=== PATIENT | female | born 1995 | race Caucasian/White ===

== ENCOUNTER 2016-06-20 10:26 | Emergency (ER) | payer OTHER ==
[2016-06-20 10:52] VITALS: BP 111/65; PULSE 94; TEMP 98.1; BMI 28.8
[2016-06-20] MEDS ORDERED: SODIUM CHLORIDE 1,000 ML IV STA (11:59)
[2016-06-20] MEDS ORDERED: ONDANSETRON 4 MG/2 ML VIAL IVPUSH ONE ×2 (11:59→15:24)
[2016-06-20 12:38] LABS: BASOPHIL 0.3 % (0-2.0); EOSINOPHIL 0.1 % (0-4.5); MCH 28.4 pg (25.7-33.7); MCHC 32.5 g/dl (32.0-36.0); MEAN CELL VOLUME 87.2 fl (80-96); MEAN PLT VOLUME 8.7 fl (7.5-11.1); NEUTROPHILS 92.9 % (42.8-82.8); PLATELET COUNT 234 K/MM3 (134-434); RDW 13.3 % (11.6-15.6); WHITE BLOOD COUNT 11.6 K/mm3 (4.0-10.0)
[2016-06-20 13:10] LABS: ALBUMIN 4.1 g/dl (3.4-5.0); ANION GAP 11 (8-16); BILIRUBIN,TOTAL 0.4 mg/dL (0.2-1.0); CALCIUM 8.9 mg/dL (8.5-10.1); CO2 27 mmol/L (21-32); CREATININE 0.9 mg/dL (0.55-1.02); GLUCOSE,RANDOM 103 mg/dL (74-106); SGOT/AST 15 U/L (15-37); SGPT/ALT 18 U/L (12-78); TOT PROT 7.6 g/dl (6.4-8.2)
[2016-06-20 13:11] LABS: ALK PHOS 65 U/L (45-117)
[2016-06-20 14:39] LABS: URINE APPEARANCE SLCLOUDY; URINE BILIRUBIN NEGATIVE (NEGATIVE); URINE COLOR YELLOW; URINE GLUCOSE (UA) NEGATIVE (NEGATIVE); URINE KETONE TRACE (NEGATIVE); URINE NITRITE NEGATIVE (NEGATIVE); URINE UROBILINOGEN NEGATIVE E.U./dl (0.2-1.0)
[2016-06-20 14:42] LABS: URINE BLOOD 3+ (NEGATIVE); URINE LEUK ESTERASE TRACE (NEGATIVE); URINE PROTEIN 1+ (NEGATIVE)
[2016-06-20 14:45] LABS: URINE MUCUS RARE; URINE RBC 38 /hpf (0-3); URINE WBC 14 /hpf (3-5)
[2016-06-20] MEDS ORDERED: ONDANSETRON 4 MG/2 ML VIAL ONE (15:41)
--- NOTE | 2016-06-20 17:21 | PDOC ---
[id number] is a 21-year-old female with no past medical history presenting to the ER today with nausea vomiting and diarrhea. Patient states she started vomiting after eating out last night at a restaurant. Pt. states she ate steak last night. She states that she vomited 3 times last night. She is also having episodes of diarrhea. Patient denies recent antibiotic use recently travel. Patient states that her family has been ill with similar symptoms over the past week. Denies blood in the stool she's been unable to keep liquids or food down. Denies abdominal pain. Denies fevers, chills, chest pains, palpitations, shortness of breath, dysuria, hematuria frequency. <Madhavi Bourne - Last Filed: 06/20/16 17:36> <Braydon Villarreal - Last Filed: 06/25/16 09:57> - General Chief Complaint: Vomiting/Diarrhea Stated Complaint: ABD PAIN, VOMITING Time Seen by Provider: 06/20/16 11:30 Past History - Past Medical History Other medical history: DENIES. - Psycho/Social/Smoking Cessation Hx Anxiety: No Suicidal Ideation: No Smoking Status: No Smoking History: Current every day smoker Have you smoked in the past 12 months: Yes Number of Cigarettes Smoked Daily: 2 Information on smoking cessation initiated: No Hx Alcohol Use: No <Madhavi Bourne - Last Filed: 06/20/16 17:36> <Braydon Villarreal - Last Filed: 06/25/16 09:57> - Past Medical History Allergies/Adverse Reactions: Allergies Allergy/AdvReac Type Severity Reaction Status Date / Time No Known Allergies Allergy Verified 06/20/16 10:47 Home Medications: Ambulatory Orders No Home Medications 0 dose .ROUTE UTDICT 03/12/13 *Physical Exam - Vital Signs Last Vital Signs Temp Pulse Resp BP Pulse Ox 98.1 F 94 H 19 111/65 96 06/20/16 10:47 06/20/16 10:47 06/20/16 10:47 06/20/16 10:47 06/20/16 10:47 - Physical Exam Comments: 06/20/16 17:22 GENERAL: Well developed, well nourished. Awake and alert. No acute distress. HEENT: Normocephalic, atraumatic. PERRLA, EOMI. No conjunctival pallor. Sclera are non- icteric. Moist mucous membranes. Oropharynx is clear. NECK: Supple. Full ROM. No JVD. Carotid pulses 2+ and symmetric, without bruits. No thyromegaly. No lymphadenopathy. CARDIOVASCULAR: Regular rate and rhythm. No murmurs, rubs, or gallops. Distal pulses are 2+ and symmetric. PULMONARY: No evidence of respiratory distress. Lungs clear to auscultation bilaterally. No wheezing, rales or rhonchi. ABDOMINAL: Soft. Non-tender. Non-distended. No rebound or guarding. No organomegaly. Normoactive bowel sounds. MUSCULOSKELETAL Normal range of motion at all joints. No bony deformities or tenderness. No CVA tenderness. EXTREMITIES: No cyanosis. No clubbing. No edema. No calf tenderness. SKIN: Warm and dry. Normal capillary refill. No rashes. No jaundice. NEUROLOGICAL: Alert, awake, appropriate. Cranial nerves 2-12 intact. No deficits to light touch and temperature in face, upper extremities and lower extremities. No motor deficits in the in face, upper extremities and lower extremities. Normoreflexic in the upper and lower extremities. Normal speech. Toes are down- going bilaterally. Gait is normal without ataxia. PSYCHIATRIC: Cooperative. Good eye contact. Appropriate mood and affect. <Madhavi Bourne - Last Filed: 06/20/16 17:36> - Vital Signs Last Vital Signs Temp Pulse Resp BP Pulse Ox 98.1 F 94 H 19 111/65 96 06/20/16 10:47 06/20/16 10:47 06/20/16 10:47 06/20/16 10:47 06/20/16 10:47 <Braydon Villarreal - Last Filed: 06/25/16 09:57> ED Treatment Course - LABORATORY CBC & Chemistry Diagram: 06/20/16 12:13 06/20/16 12:13 - ADDITIONAL ORDERS Additional order review: Laboratory Results 06/20/16 06/20/16 06/20/16 12:13 12:13 12:13 Sodium 142 Potassium 4.1 Chloride 104 Carbon Dioxide 27 Anion Gap 11 BUN 14 Creatinine 0.9 Creat Clearance w eGFR > 60 Random Glucose 103 Calcium 8.9 Total Bilirubin 0.4 AST 15 ALT 18 Alkaline Phosphatase 65 Total Protein 7.6 Albumin 4.1 Urine Color Yellow Urine Appearance Slcloudy Urine pH 5.0 Ur Specific [place] 1.027 Urine Protein 1+ H Urine Glucose (UA) Negative Urine Ketones Trace H Urine Blood 3+ H Urine Nitrite Negative Urine Bilirubin Negative Urine Urobilinogen Negative Ur Leukocyte Esterase Trace H Urine RBC 38 Urine WBC 14 Ur Epithelial Cells Many Urine Mucus Rare Urine HCG, Qual Negative 06/20/16 12:13 RBC 5.21 H MCV 87.2 MCHC 32.5 RDW 13.3 MPV 8.7 Neutrophils % 92.9 H Lymphocytes % 3.9 L Monocytes % 2.8 L Eosinophils % 0.1 Basophils % 0.3 <Madhavi Bourne - Last Filed: 06/20/16 17:36> - LABORATORY CBC & Chemistry Diagram: 06/20/16 12:13 06/20/16 12:13 - ADDITIONAL ORDERS Additional order review: 06/20/16 12:13 RBC 5.21 H MCV 87.2 MCHC 32.5 RDW 13.3 MPV 8.7 Neutrophils % 92.9 H Lymphocytes % 3.9 L Monocytes % 2.8 L Eosinophils % 0.1 Basophils % 0.3 <Braydon Villarreal - Last Filed: 06/25/16 09:57> Medical Decision Making - Medical Decision Making 06/20/16 12:39 Patient is 21-year-old female with no past medical history presenting with nausea vomiting and diarrhea 12 hours. Most likely a viral gastroenteritis. We' ll draw basic labs. Fluids and Zofran for symptom control. We'll reevaluate. 1. CBC, CMP for hydration status. 2. Fluids and zofran for symptomatic relief 3. Will re-evlauate 06/20/16 14:01 Patient states she vomited after Zofran. Patient tells me that she ate fruit thinking that it would help her symptoms. Advised patient that she should not eat while in the ER. She may have water or ice chips. We'll administer another dose of Zofran. Will reevaluate. 06/20/16 15:30 Patient has not vomited since second dose of Zofran. Will by mouth trial at this time. Lab work shows elevated white count. BUN/creatinine are within normal limits. Patient states she is not feeling nauseous anymore. 06/20/16 16:00 Patient was able to tolerate by mouth trial with orange juice. Patient is feeling much better at this time and ready to go home. Will discharge at this time. <Madhavi Bourne - Last Filed: 06/20/16 17:36> - Medical Decision Making 06/25/16 09:57 The patient was seen and evaluated in conjunction with CODY Bourne under my direct supervision, ancillary studies were revieweI agree with the plan as outlined by CODY Bourne. <Braydon Villarreal - Last Filed: 06/25/16 09:57> *DC/Admit/Observation/Transfer - Discharge Dispostion Admit: No <Madhavi Bourne - Last Filed: 06/20/16 17:36> <Braydon Villarreal - Last Filed: 06/25/16 09:57> Diagnosis at time of Disposition: Gastroenteritis - Discharge Dispostion Disposition: HOME Condition at time of disposition: Improved - Referrals Referrals: Cruz Schultz [Primary Care Provider] - - Patient Instructions Printed Discharge Instructions: DI for Viral Gastroenteritis -- Adult Additional Instructions: You have a stomach virus. Drink plenty of fluids to keep hydrated. You may have watered down gatorade, or juice. Avoid dairy products until your symptoms have stopped for 48 hours. Stick to eating bananas, toast, rice, apple sauce and jello You were prescribed zofran for nausea. You may have additional vomiting or diarrhea before you get better. If you develop fevers, chills, or increased vomiting, return to the ED.
== END 2016-06-20 17:45 | disposition home or self-care (01) ==
LOC: JER 10:26
DX: A08.4 Viral intestinal infection, unspecified (principal); B97.89 Other viral agents as the cause of diseases classified elsewhere
CPT/HCPCS: 36415; 80053; 81003; 81015; 84703; 85025; 99281-25

== ENCOUNTER 2016-08-26 12:18 | Emergency (ER) | payer SELFPAY ==
[2016-08-26 12:35] VITALS: BP 104/70; PULSE 62; TEMP 98.2; BMI 29.4
== END 2016-08-26 13:29 | disposition left against medical advice (07) ==
LOC: JERFT 12:18
DX: Z53.21 Procedure and treatment not carried out due to patient leaving prior to being seen by health care provider (principal)
CPT/HCPCS: 99281-25

== ENCOUNTER 2017-07-27 11:59 | Emergency (ER) | payer OTHER ==
[2017-07-27] MEDS ORDERED: ACETAMINOPHEN 325 MG TABLET (FP) PO ONE (12:23)
--- NOTE | 2017-07-27 12:23 | PDOC ---
Rapid Medical Evaluation Chief Complaint: Sore Throat Time Seen by Provider: 07/27/17 12:19 Medical Evaluation: Allergies Allergy/AdvReac Type Severity Reaction Status Date / Time No Known Allergies Allergy Verified 08/26/16 12:31 07/27/17 12:38 The patient presents with a chief complaint of: sore throat I have performed a brief in-person evaluation of this patient. Pertinent physical exam findings: vss, throat findings I have ordered the following: rapid strep The patient will proceed to the ED for further evaluation.
[2017-07-27 12:26] VITALS: BP 127/79; PULSE 93; TEMP 99.8; BMI 29.4
[2017-07-27] MEDS ORDERED: ACETAMINOPHEN 325 MG TABLET (FP) ONE (13:01)
--- NOTE | 2017-07-27 13:25 | PDOC ---
History of Present Illness - General Chief Complaint: Sore Throat Stated Complaint: THROAT PAIN Time Seen by Provider: 07/27/17 12:19 History Source: Patient Exam Limitations: No Limitations - History of Present Illness Initial Comments: 07/27/17 13:17 Patient is a 32-year-old female, no significant medical history currently on no medication presents with sore throat for 2 days. Difficulty swallowing, right pre cerival painful palpable lymph node. Able to drink. No fever. Past Medical History: [Denies]. Allergies: No known allergies Medications: None] Family History: Non-contributory Social History: Denies smoking, alcohol use, or IVDU Review of Systems GENERAL/CONSTITUTIONAL: [No fever or chills. No weakness. No weight change.] HEAD, EYES, EARS, NOSE AND THROAT: [No change in vision. No ear pain or discharge. Sore throat, dysphagia ] CARDIOVASCULAR: [No chest pain or shortness of breath.] RESPIRATORY: [No cough, wheezing, or hemoptysis.] GASTROINTESTINAL: [No nausea, vomiting, diarrhea or constipation. No rectal bleeding.] GENITOURINARY: [No dysuria, frequency, or change in urination.] MUSCULOSKELETAL: [No joint or muscle swelling or pain. No neck or back pain.] SKIN AND BREASTS: [No rash or easy bruising.] NEUROLOGIC: [No headache, vertigo, loss of consciousness, or loss of sensation.] PSYCHIATRIC: [No depression or anxiety.] ENDOCRINE: [No increased thirst. No abnormal weight change.] HEMATOLOGIC/LYMPHATIC: [No anemia, easy bleeding, or history of blood clots. Right precervical node] ALLERGIC/IMMUNOLOGIC: [No hives or skin allergy. No latex allergy.] Physical Exam: GENERAL: [The patient is awake, alert, and fully oriented, in no acute distress. ] HEAD: [Normal with no signs of trauma.] EYES: [Pupils equal, round and reactive to light, extraocular movements intact, sclera anicteric, conjunctiva clear.] ENT: [Ears normal, nares patent, oropharynx erythematous with bilateral exudates to tonsils. Moist mucous membranes. No uvula deviation] NECK: [Normal range of motion, right precervical lymph node, no JVD, or masses.] LUNGS: [Breath sounds equal, clear to auscultation bilaterally. No wheezes, and no crackles.] HEART: [Regular rate and rhythm, normal S1 and S2 without murmur, rub or gallop. ] ABDOMEN: [Soft, nontender, normoactive bowel sounds. No guarding, no rebound. No masses. No bruising or abrasions] RECTAL : [Guaiac negative, normal rectal tone.] MUSCULOSKELETAL: [Normal range of motion, no edema. No clubbing or cyanosis. No cords, erythema, or tenderness. No CVA Tenderness with fist.] NEUROLOGICAL: [Cranial nerves II through XII grossly intact. Normal speech, normal gait.] PSYCH: [Normal mood, normal affect.] SKIN: [Warm, Dry, normal turgor, no rashes or lesions noted.] Past History - Past Medical History Allergies/Adverse Reactions: Allergies Allergy/AdvReac Type Severity Reaction Status Date / Time No Known Allergies Allergy Verified 07/27/17 13:03 Home Medications: Ambulatory Orders No Home Medications 0 dose .ROUTE UTDICT 03/12/13 Azithromycin [Zithromax 250mg Tablets -] 250 mg PO UTDICT #6 tab 07/27/17 Ibuprofen [Motrin -] 400 mg PO QID #20 tablet 07/27/17 COPD: No - Suicide/Smoking/Psychosocial Hx Smoking Status: No Smoking History: Current some day smoker Have you smoked in the past 12 months: Yes Number of Cigarettes Smoked Daily: 2 Information on smoking cessation initiated: Yes 'Breaking Loose' booklet given: 07/27/17 Hx Alcohol Use: No Drug/Substance Use Hx: No Substance Use Type: None *Physical Exam - Vital Signs Last Vital Signs Temp Pulse Resp BP Pulse Ox 99.8 F H 93 H 20 127/79 98 07/27/17 12:22 07/27/17 12:22 07/27/17 12:22 07/27/17 12:22 07/27/17 12:22 ED Treatment Course - ADDITIONAL ORDERS Additional order review: 07/27/17 12:30 Group A Strep Rapid Antigen - Final Throat - Medications Given in the ED: ED Medications Discontinued Medications Generic Name Dose Route Start Last Admin Trade Name Freq PRN Reason Stop Dose Admin Acetaminophen 650 mg 07/27/17 12:23 07/27/17 13:02 Tylenol - PO 07/27/17 12:24 650 mg ONCE ONE Administration Medical Decision Making - Medical Decision Making 07/27/17 13:25 A/P: Patient here for sore throat and dysphasia, rapid strep sent positive we' ll DC with azithromycin, Decadron 10 mg by mouth given prior to DC. Motrin for pain. *DC/Admit/Observation/Transfer Diagnosis at time of Disposition: Strep tonsillitis - Discharge Dispostion Disposition: HOME Condition at time of disposition: Stable - Prescriptions Prescriptions: Azithromycin [Zithromax 250mg Tablets -] 250 mg PO UTDICT #6 tab Ibuprofen [Motrin -] 400 mg PO QID #20 tablet - Referrals Referrals: Cedric Boggs MD [Staff Physician] - - Patient Instructions Printed Discharge Instructions: DI for Strep Throat Additional Instructions: 1. Increase fluid. 2. Pedialyte or Gatorade. 3. Please change toothbrush within 3 days of starting antibiotics. 4. Warm saltwater gargles. 5. Please follow up with PMD in 3 days if symptoms not resolving. 6. Please return to the ER unable to drink or eat, increased fever or other concerns - Post Discharge Activity Forms/Work/School Notes: Back to Work
[2017-07-27] MEDS ORDERED: DEXAMETHASONE SOD PHOSPHATE 10 MG/1 ML VIAL ONE (13:29)
[2017-07-27] MEDS ORDERED: DEXAMETHASONE 4 MG TABLET (FP) PO ONE (13:30)
== END 2017-07-27 13:32 | disposition home or self-care (01) ==
LOC: JERFT 11:59 → JER 11:59 → JERFT 13:32
DX: J03.00 Acute streptococcal tonsillitis, unspecified (principal); F17.210 Nicotine dependence, cigarettes, uncomplicated
CPT/HCPCS: 87070; 87430; 99281-25